=== PATIENT | male | born 1985 | race Caucasian/White ===

== ENCOUNTER 2022-08-27 12:12 | Emergency (ER) | payer OTHER | END 2022-08-27 15:50 | disposition home or self-care (01) | LOC: JP.ED 12:12 | DX: M62.81 Muscle weakness (generalized) (principal); M43.00 Spondylolysis, site unspecified; I10 Essential (primary) hypertension; Z90.49 Acquired absence of other specified parts of digestive tract; Z79.899 Other long term (current) drug therapy; Z87.891 Personal history of nicotine dependence | CPT/HCPCS: 36415; 70450; 72125; 72131; 80048; 82550; 82607; 82746; 84443; 85025; 85651; 86140; 86618; 99283; 99285 ==